=== PATIENT | male | born 1965 | race Caucasian/White ===

== ENCOUNTER 2017-05-23 11:09 | Emergency (ER) | payer BC ==
[2014-12-19 06:05] VITALS: BMI 40.1
[~2017-05-23 11:09] MED LIST: ALEVE220 MG PO; MELATONIN 10 M1 EACH PO; ZESTRIL20 MG PO
== END 2017-05-23 14:00 | disposition home or self-care (01) ==
LOC: D.ER 11:09
DX: M54.5 Low back pain (principal); I10 Essential (primary) hypertension